=== PATIENT | male | born 1960 | race African-American/Black ===

== ENCOUNTER 2017-02-23 12:41 | Emergency (ER) | payer OTHER ==
[~2017-02-23] VITALS: Ht 174 cm; Wt 68.0 kg
[~2017-02-23 12:41] MED LIST: ADVIL200 MG PO; AMOXICILLIN875 MG PO; ASPIR-LOW81 MG PO; CENTRUM TABLET1 EACH PO; MOBIC15 MG PO; MOTRIN600 MG PO; MULTIPLE VITAM1 EAC1 PO; NAPROXEN500 MG PO; NEURONTIN100 MG PO; NOHOMEMEDS; NORCO 5/3251 TABLET PO; PERCOCET 10/1 TABLET PO; PERCOCET 5/31 TABLET PO; ROBAXIN500 MG PO
[2017-02-23 13:18] LABS: ADD MIUA? YES; BILIRUBIN NEGATIVE; BLOOD MODERATE; COLOR YELLOW ((YELLOW)); GLUCOSE (STRIP) NEGATIVE; KETONES 5; LEUKOCYTES LARGE; NITRITE POSITIVE; PROTEIN (STRIP) 100; SPECIFIC GRAVITY 1.011 (1.000-1.030); UROBILINOGEN 0.2 MG/DL (0.2-1.0)
[2017-02-23 13:29] LABS: EOSINOPHIL (%) 0.1 % (0-5); HEMATOCRIT 46.6 % (38.0-50.0); IMMATURE GRANULOCYTE (%) 0.3 % (0.0-0.7); INSTRUMENT ABS NEUTROPHIL CT 9.3 K/uL; LYMPHOCYTE COUNT 1.3 K/uL (1.0-2.8); MCH 30.6 PG (29.0-34.0); MCV 87.4 FL (86-99); MEAN PLAT.VOLUME 11.3 uM^3 (9.0-12.4); MONOCYTE (%) 9.1 % (3-12); MONOCYTE COUNT 1.1 K/uL (0-0.8); NEUTROPHIL COUNT 9.3 K/uL (1.8-6.4); PLATELET COUNT 170 K/uL (156-360); RBC DIS.WIDTH-CV 12.8 % (11.8-14.6); RBC DIS.WIDTH-SD 41.4 % (39-53); RED BLOOD COUNT 5.33 M/uL (4.00-5.50); WHITE BLOOD COUNT 11.8 K/uL (4.1-10.2)
[2017-02-23 13:49] LABS: CHLORIDE 101 mEq/L (99-109); SODIUM 138 mEq/L (136-147)
[2017-02-23 13:51] LABS: GLUCOSE 120 mg/dL (70-99)
[2017-02-23 13:52] LABS: ANION GAP 13 MEQ/L (2-14)
[2017-02-23 13:52] LABS: BACTERIA 1+ /HPF; EPITHELIAL CELLS NONE SEEN /HPF; MUCUS NONE SEEN /LPF; UCUL ADDED? YES; WHITE BLOOD CELLS TNTC /HPF (0-5)
[2017-02-23 13:55] LABS: ALKALINE PHOSPHATASE 87 IU/L (3-129); GFR ESTIMATE (CALCULATED) > 59 mL/min/
[2017-02-23 13:56] LABS: UREA NITROGEN (BUN) 15 mg/dL (9-23)
[2017-02-23 13:58] LABS: LIPASE 18 U/L (1.0-51.0)
[2017-02-23] MEDS ORDERED: PYRIDIUM100 MG PO (18:00)
[2017-02-23] MEDS ORDERED: CIPRO500 MG PO (18:00)
[2017-02-23] MEDS ORDERED: PERCOCET 5/31 TABLET PO (18:00)
[2017-02-23 18:42] VITALS: BP 115/79
== END 2017-02-23 18:44 | disposition home or self-care (01) ==
LOC: EME 12:41
PROVIDERS: Physician Assistant
DX: N10 Acute pyelonephritis (principal); N39.0 Urinary tract infection, site not specified; Z87.891 Personal history of nicotine dependence
CPT/HCPCS: 71010; 74176; 80053; 81003; 83690; 85025; 87077; 87086; 87186; 99281; 99284; J0696; J1885; J2270; J7050

== ENCOUNTER 2018-04-21 03:23 | Emergency (ER) | payer OTHER ==
[~2018-04-21] VITALS: Ht 172.7 cm; Wt 66.5 kg
[~2018-04-21 03:23] MED LIST changes: +CIPRO500 MG PO; +PYRIDIUM100 MG PO
[2018-04-21 03:42] LABS: HEMATOCRIT 42.8 % (38.0-50.0); HEMOGLOBIN 15.5 G/DL (12.5-16.6); MCH 31.3 PG (29.0-34.0); MCHC 36.2 G/DL (30.0-36.0); MCV 86.3 FL (86-99); RBC DIS.WIDTH-CV 12.2 % (11.8-14.6); RBC DIS.WIDTH-SD 38.8 % (39-53); RED BLOOD COUNT 4.96 M/uL (4.00-5.50); WHITE BLOOD COUNT 6.4 K/uL (4.1-10.2)
[2018-04-21 03:53] LABS: CHLORIDE 103 mEq/L (99-109); SODIUM 141 mEq/L (136-147)
[2018-04-21 03:54] LABS: GLUCOSE 115 mg/dL (70-99)
[2018-04-21 03:58] LABS: GFR ESTIMATE (CALCULATED) > 59 mL/min/ (58.99-99999)
[2018-04-21 03:59] LABS: UREA NITROGEN (BUN) 11 mg/dL (9-23)
[2018-04-21] MEDS ORDERED: PREDNISONE50 MG PO (04:58)
[2018-04-21 05:16] LABS: PLAT.SUFFICIENCY ADEQUATE; PLATELET COUNT 208 K/uL (156-360)
[2018-04-21 05:17] VITALS: BP 115/95
== END 2018-04-21 05:17 | disposition home or self-care (01) ==
LOC: EME 03:23
DX: J06.9 Acute upper respiratory infection, unspecified (principal); F17.200 Nicotine dependence, unspecified, uncomplicated
CPT/HCPCS: 71046; 80048; 85027; 94640; 99281; 99284; J7512

== ENCOUNTER 2018-05-25 22:06 | Emergency (ER) | payer OTHER ==
[~2018-05-25] VITALS: Ht 172.7 cm; Wt 64.7 kg
[~2018-05-25 22:06] MED LIST changes: +PREDNISONE50 MG PO
[2018-05-25 22:47] LABS: HEMATOCRIT 43.7 % (38.0-50.0); HEMOGLOBIN 15.4 G/DL (12.5-16.6); MCHC 35.2 G/DL (30.0-36.0); MCV 87.9 FL (86-99); PLATELET COUNT 201 K/uL (156-360); RBC DIS.WIDTH-CV 12.5 % (11.8-14.6); RBC DIS.WIDTH-SD 40.5 % (39-53); RED BLOOD COUNT 4.97 M/uL (4.00-5.50); WHITE BLOOD COUNT 6.3 K/uL (4.1-10.2)
[2018-05-25 22:54] LABS: ALBUMIN 4.1 g/dL (3.2-4.8)
[2018-05-25 22:55] LABS: CHLORIDE 104 mEq/L (99-109); POTASSIUM 3.4 mEq/L (3.7-5.4); SODIUM 140 mEq/L (136-147)
[2018-05-25 22:57] LABS: GLUCOSE 118 mg/dL (70-99); TOTAL PROTEIN 7.6 g/dL (6.4-8.3)
[2018-05-25 22:59] LABS: TOTAL BILIRUBIN 0.5 mg/dL (0.0-1.0)
[2018-05-25 23:00] LABS: ALKALINE PHOSPHATASE 100 IU/L (3-129)
[2018-05-25 23:01] LABS: CREATININE 1.1 mg/dL (0.6-1.3); GFR ESTIMATE (CALCULATED) > 59 mL/min/ (58.99-99999)
[2018-05-25 23:02] LABS: AST (GOT) 20 IU/L (2-34); UREA NITROGEN (BUN) 11 mg/dL (9-23)
[2018-05-25 23:04] LABS: ALT (GPT) 13 IU/L (3-49); LIPASE 35 U/L (1.0-51.0)
[2018-05-26 02:27] LABS: APPEARANCE CLEAR ((CLEAR)); BILIRUBIN NEGATIVE; BLOOD NEGATIVE; COLOR YELLOW ((YELLOW)); GLUCOSE (STRIP) NEGATIVE; KETONES NEGATIVE; LEUKOCYTES NEGATIVE; NITRITE NEGATIVE; PROTEIN (STRIP) NEGATIVE; SPECIFIC GRAVITY 1.025 (1.000-1.030); UCUL ADDED? NO; UROBILINOGEN 0.2 MG/DL (0.2-1.0)
[2018-05-26] MEDS ORDERED: FLAGYL500 MG PO (03:40)
[2018-05-26] MEDS ORDERED: CIPRO500 MG PO (03:40)
[2018-05-26] MEDS ORDERED: TYLENOL WITH C1 EACH PO (03:40)
[2018-05-26 03:49] VITALS: BP 118/81
== END 2018-05-26 03:51 | disposition home or self-care (01) ==
LOC: EME 22:06
DX: K52.9 Noninfective gastroenteritis and colitis, unspecified (principal); R10.31 Right lower quadrant pain; J98.11 Atelectasis; F17.200 Nicotine dependence, unspecified, uncomplicated
CPT/HCPCS: 74177; 80053; 81003; 83690; 85027; J3010; J7030